=== PATIENT | female | born 1970 ===

== ENCOUNTER 2021-01-23 11:48 | Outpatient (CLI) | payer BC ==
[2021-01-24 13:56] LABS: SARS-CoV-2 PCR by NAA Not Detected (NotDetected)
== END 2021-01-23 11:49 | disposition home or self-care (01) ==
LOC: LABBT 11:48
PROVIDERS: ATTEND Otolaryngology Plastic Surgery within the Head & Neck
DX: Z01.812 Encounter for preprocedural laboratory examination (principal); J34.3 Hypertrophy of nasal turbinates; J34.89 Other specified disorders of nose and nasal sinuses; J35.1 Hypertrophy of tonsils; R06.83 Snoring; R06.81 Apnea, not elsewhere classified; Z20.822 Contact with and (suspected) exposure to COVID-19
CPT/HCPCS: 85014; U0003; U0005

== ENCOUNTER 2021-01-28 08:48 | Day surgery (SDC) | payer BC ==
[2021-01-27 12:33] VITALS: BMI 27.3
[2021-01-28] MEDS ORDERED: AFRIN NASAL MIST 15 ML BOT ONE ×2 (10:07→10:30)
[2021-01-28] MEDS ORDERED: Lidocaine 1% w/Epinephrine 1:100K 20 ML VIAL ONE (10:30)
[2021-01-28] MEDS ORDERED: Fentanyl 100 MCG/2 ML VIAL ONE ×4 (10:34→12:29)
[2021-01-28] MEDS ORDERED: methylPREDNISolone Acetate 40 mg/ml Vial ONE (10:36)
[2021-01-28] MEDS ORDERED: Lidocaine 1% PF 5 ML VIAL ONE (10:41)
[2021-01-28] MEDS ORDERED: Dexamethasone 20 MG/5 ML VIAL ONE (10:41)
[2021-01-28] MEDS ORDERED: PHENYLEPHRINE-NS 100 MCG/ML 10 ML SYRINGE ONE (10:41)
[2021-01-28] MEDS ORDERED: PROPOFOL 200 MG/20 ML VIAL ONE (10:41)
[2021-01-28] MEDS ORDERED: Ondansetron PF 4 MG/2 ML Vial ONE (10:41)
[2021-01-28] MEDS ORDERED: PROPOFOL 20 ML ONE (10:46)
== END 2021-01-28 13:30 | disposition home or self-care (01) ==
LOC: SDC 08:48
PROVIDERS: ATTEND Otolaryngology Plastic Surgery within the Head & Neck
PROC: 0CTPXZZ Resection of Tonsils, External Approach (ICD-10-PCS; principal; 2021-01-28)
PROC: 09TL0ZZ Resection of Nasal Turbinate, Open Approach (ICD-10-PCS; principal; 2021-01-28)
PROC: 0CTQXZZ Resection of Adenoids, External Approach (ICD-10-PCS; principal; 2021-01-28)
PROC: 09QK0ZZ Repair Nasal Mucosa and Soft Tissue, Open Approach (ICD-10-PCS; principal; 2021-01-28)
PROC: 0CTNXZZ Resection of Uvula, External Approach (ICD-10-PCS; principal; 2021-01-28)
DX: J34.89 Other specified disorders of nose and nasal sinuses (principal); G47.33 Obstructive sleep apnea (adult) (pediatric); J35.03 Chronic tonsillitis and adenoiditis; K13.79 Other lesions of oral mucosa; J34.3 Hypertrophy of nasal turbinates; Z79.899 Other long term (current) drug therapy; Z88.1 Allergy status to other antibiotic agents
CPT/HCPCS: 88302; 88304; C1889; J1100; J2405; J2704; J2920; J3010